=== PATIENT | female | born 1950 | race Caucasian/White ===

== ENCOUNTER 2017-05-11 15:37 | Inpatient (IN) | payer MEDICARE, MEDICAID ==
[~2017-05-11] VITALS: Ht 170.2 cm; Wt 103.5 kg
[~2017-05-11 15:37] MED LIST: ALEN70TA3 PO; BENA20TA2 PO; BRIM5DRO3 EACHEYE; DIAZ5TAB PO; DOCU-131 PO; LATA2.5D3 EACHEYE; METF500T9; MORP15TA3 PO; ONDA4SOL2 PO; OXYC5CAP2 PO; OXYC5TAB2 PO; SERT50TA PO; VARE0.5T PO; methadone
[2017-05-11] MEDS ORDERED: SODIUM CHLORIDE 0.9% 1,000ML IVBOLUS ONE (16:00)
[2017-05-11] MEDS ORDERED: methylPREDNISolone SOD SUCC 125 MG/2 ML IVP ONE (16:00)
[2017-05-11] MEDS ORDERED: ALBUTEROL/IPRATROPIUM 2.5MG/0.5MG, 3 ML NPPB ONE (16:00)
[2017-05-11] MEDS ORDERED: SODIUM CHLORIDE FLUSH 10ML SYR IVF ONE (16:00)
[2017-05-11] MEDS ORDERED: ACETAMINOPHEN 325 MG TABLET PO ONE (16:00)
[2017-05-11 16:36] LABS: EOSINOPHILS % (AUTO) 0 % (1-7); MD NO; MEAN CORPUSCULAR HGB CONC 32.9 g/dL (32.4-35.8); PLATELET COUNT 120 x10^3/uL (130-400); RED CELL DISTRIBUTION WIDTH 18.2 % (9.6-15.2)
[2017-05-11] MEDS ORDERED: ALBUTEROL/IPRATROPIUM 2.5MG/0.5MG, 3 ML ONE (16:40)
[2017-05-11] MEDS ORDERED: FURO20TA3 PO (16:44)
[2017-05-11] MEDS ORDERED: ZOLP10TA PO (16:44)
[2017-05-11] MEDS ORDERED: POTA10CA PO (16:44)
[2017-05-11] MEDS ORDERED: METH-356 PO (16:44)
[2017-05-11 16:48] LABS: ALANINE AMINOTRANSFERASE 31 U/L (12-78); ALBUMIN 3.1 g/dL (3.4-5.0); ANION GAP 9 mmol/L (5-15); CALCIUM 8.6 mg/dL (8.5-10.1); CHLORIDE 97 mmol/L (98-107); CREATININE 0.63 mg/dL (0.55-1.02)
[2017-05-11 16:50] LABS: ALKALINE PHOSPHATASE 125 U/L (45-117); BILIRUBIN,TOTAL 0.5 mg/dL (0.2-1.0); TOTAL PROTEIN 6.7 g/dL (6.4-8.2)
[2017-05-11 16:59] LABS: RAPID INFLUENZA A POSITIVE (Negative); RAPID INFLUENZA B Negative (Negative)
[2017-05-11] MEDS ORDERED: methylPREDNISolone SOD SUCC 125 MG/2 ML ONE (17:07)
[2017-05-11] MEDS ORDERED: ACETAMINOPHEN 325 MG TABLET ONE (17:07)
[2017-05-11 17:12] LABS: BASOPHILS # (AUTO) 0.01 x10^3/uL (0-0.1); BASOPHILS % (AUTO) 0 % (0-1); LYMPHOCYTES # (AUTO) 0.83 x10^3/uL (1-3.4); LYMPHOCYTES % (AUTO) 18 % (22-44); MEAN CORPUSCULAR HEMOGLOBIN 33.5 pg (27.0-34.8); MEAN CORPUSCULAR VOLUME 101.9 fL (80-100); MEAN PLATELET VOLUME 8.9 fL (7.4-10.4); MONOCYTES % (AUTO) 19 % (2-9); NEUTROPHILS # (AUTO) 3.01 x10^3/uL (1.8-6.8); NEUTROPHILS % (AUTO) 63 % (42-75); RED BLOOD COUNT 5.22 x10^6/uL (3.82-5.3)
[2017-05-11 21:40] VITALS: BP 132/80
[2017-05-11] MEDS: ALBUTEROL/IPRATROPIUM 2.5MG/0.5MG, 3 ML NPPB PRN (21:55)
[2017-05-12] MEDS ORDERED: DOCUSATE 100 MG CAPSULE PO PRN
[2017-05-12] MEDS ORDERED: BISACODYL 10 MG SUPP PR PRN
[2017-05-12 00:09] LABS: TROPONIN I 0.047 ng/mL (0.000-0.045)
[2017-05-12 00:18] LABS: HEMOGLOBIN A1C 6.1 % (4.2-6.3)
[2017-05-12] MEDS: HEPARIN 5,000 UNITS/ML, 1ML SQ SCH ×2 (00:29→08:00)
[2017-05-12] MEDS: SODIUM CHLORIDE 0.9% 1,000 ML IV SCH ×3 (00:30→20:00)
[2017-05-12 00:36] LABS: MICROSCOPIC AUTO
[2017-05-12 00:37] LABS: CULTURE INDICATED? YES
[2017-05-12 01:33] VITALS: BP 136/68
[2017-05-12 03:03] VITALS: BP 143/70
[2017-05-12] MEDS ORDERED: Enoxaparin 1 mg/kg protocol SQ SCH (04:00)
[2017-05-12 04:15] LABS: AMPHETAMINE SCREEN, URINE Negative (Negative); BARBITURATE SCREEN, URINE Negative (Negative); BENZODIAZEPINE SCREEN, URINE Negative (Negative); CANNABINOID SCREEN, URINE Negative (Negative); COCAINE SCREEN, URINE Negative (Negative); METHADONE SCREEN, URINE Positive (Negative); OPIATE SCREEN, URINE Negative (Negative)
[2017-05-12] MEDS ORDERED: ENOXAPARIN 100 MG/ML SQ SCH (04:30)
[2017-05-12] MEDS ORDERED: OSELTAMIVIR 75 MG CAPSULE PO SCH ×2 (06:00)
[2017-05-12] MEDS: ASPIRIN 325 MG TABLET EC PO SCH (06:00)
[2017-05-12] MEDS: OSELTAMIVIR 75 MG CAPSULE PO SCH ×2 (06:20→17:32)
[2017-05-12 07:15] VITALS: BP 131/77
[2017-05-12 07:39] LABS: ALANINE AMINOTRANSFERASE 29 U/L (12-78); ALBUMIN 2.8 g/dL (3.4-5.0); ANION GAP 7 mmol/L (5-15); CALCIUM 8.2 mg/dL (8.5-10.1); CHLORIDE 100 mmol/L (98-107); CREATININE 0.59 mg/dL (0.55-1.02); TROPONIN I 0.035 ng/mL (0.000-0.045)
[2017-05-12 07:42] LABS: MD YES; MEAN CORPUSCULAR HEMOGLOBIN 33.2 pg (27.0-34.8); MEAN CORPUSCULAR HGB CONC 32.5 g/dL (32.4-35.8); MEAN CORPUSCULAR VOLUME 102.2 fL (80-100); MEAN PLATELET VOLUME 8.8 fL (7.4-10.4); PLATELET COUNT 114 x10^3/uL (130-400); RED BLOOD COUNT 4.94 x10^6/uL (3.82-5.3)
[2017-05-12 07:47] LABS: BAND#(MANUAL) 0.05 x10^3/uL; BANDS%(MANUAL) 2 % (0-7); LYMPH#(MANUAL) 0.54 x10^3/uL (1-3.4); LYMPHS% (MANUAL) 20 % (22-44); MONOS#(MANUAL) 0.38 x10^3/uL (0.3-2.7); MONOS% (MANUAL) 14 % (2-9); NRBC % (MANUAL) 1 % (0-1); REACTIVE LYMPHS # (MANUAL) 0.03 x10^3/uL (0-0); REACTIVE LYMPHS % (MANUAL) 1 % (0-0); SEGS% (MANUAL) 63 % (42-75)
[2017-05-12 07:48] LABS: ALKALINE PHOSPHATASE 114 U/L (45-117); BILIRUBIN,TOTAL 0.3 mg/dL (0.2-1.0); CHOL/HDL RATIO 1.7; CHOLESTEROL, TOTAL 115 mg/dL (140-239); HDL CHOL % 60 % (28-40); HDL CHOLESTEROL (DIRECT) 69 mg/dL (40-60); LDL CHOLESTEROL,CALCULATED 27 mg/dL (54-169); LDL/HDL RATIO 0.4 (0.5-3.0); THYROID STIMULATING HORMONE 0.845 mIU/L (0.358-3.740); TOTAL PROTEIN 6.5 g/dL (6.4-8.2); TRIGLYCERIDES 95 mg/dL (50-200); VLDL CHOLESTEROL 19 mg/dL (0-25)
[2017-05-12 07:49] LABS: ANISOCYTOSIS 1+
[2017-05-12 07:50] LABS: <PLATELET ESTIMATE> DECREASED; <PLT MORPHOLOGY> NORMAL PLT MORPH; POLYCHROMASIA 1+
[2017-05-12 12:15] VITALS: BP 136/81
[2017-05-12] MEDS: ALBUTEROL/IPRATROPIUM 2.5MG/0.5MG, 3 ML NPPB PRN (16:09)
[2017-05-12] MEDS: GUAIFENESIN/COD200MG-20MG/10ML LIQUID PO PRN (17:32)
[2017-05-12 18:49] VITALS: BP 125/73
[2017-05-12] MEDS ORDERED: ENOXAPARIN 40 MG/0.4 ML ONE (19:56)
[2017-05-12] MEDS: ENOXAPARIN 40 MG/0.4 ML SQ SCH (20:01)
[2017-05-12] MEDS: LORazepam 0.5MG TABLET PO PRN (20:19)
[2017-05-13 01:40] VITALS: BP 148/78
[2017-05-13] MEDS: SODIUM CHLORIDE 0.9% 1,000 ML IV SCH ×2 (04:01→16:26)
[2017-05-13] MEDS: OSELTAMIVIR 75 MG CAPSULE PO SCH ×2 (06:10→16:26)
[2017-05-13] MEDS: ASPIRIN 325 MG TABLET EC PO SCH (06:10)
[2017-05-13 08:46] VITALS: BP 154/85
[2017-05-13 13:51] VITALS: BP 151/74
[2017-05-13 19:00] VITALS: BP 153/79
[2017-05-13] MEDS: ENOXAPARIN 40 MG/0.4 ML SQ SCH (20:00)
[2017-05-14] MEDS: SODIUM CHLORIDE 0.9% 1,000 ML IV SCH ×3 (00:14→17:43)
[2017-05-14] MEDS: GUAIFENESIN/COD200MG-20MG/10ML LIQUID PO PRN (00:19)
[2017-05-14 02:00] VITALS: BP 169/93
[2017-05-14 02:20] VITALS: BP 183/106
[2017-05-14] MEDS ORDERED: METOPROLOL TARTRATE 25 MG TABLET ONE (02:23)
[2017-05-14] MEDS ORDERED: AMLODIPINE 5 MG TABLET ONE (02:23)
[2017-05-14] MEDS: METOPROLOL TARTRATE 25 MG TABLET PO SCH ×2 (02:29→16:26)
[2017-05-14] MEDS ORDERED: AMLODIPINE 5 MG TABLET PO ONE (02:30)
[2017-05-14] MEDS: ACETAMINOPHEN 325 MG TABLET PO PRN (03:55)
[2017-05-14] MEDS: ASPIRIN 325 MG TABLET EC PO SCH (06:00)
[2017-05-14] MEDS: OSELTAMIVIR 75 MG CAPSULE PO SCH ×2 (06:05→16:26)
[2017-05-14 06:52] VITALS: BP 132/84
[2017-05-14] MEDS ORDERED: REGADENOSON 0.4 MG/5 ML SYRINGE ONE (08:14)
[2017-05-14] MEDS: LORazepam 0.5MG TABLET PO PRN ×2 (09:03→16:25)
[2017-05-14 13:02] VITALS: BP 168/88
[2017-05-14] MEDS: PROMETHAZINE/COD. 10MG/6.25MG/5 ML ORAL SOL PO PRN (16:25)
[2017-05-14] MEDS: ALBUTEROL/IPRATROPIUM 2.5MG/0.5MG, 3 ML NPPB PRN (16:42)
[2017-05-14 19:52] VITALS: BP 164/86
[2017-05-14] MEDS: ENOXAPARIN 40 MG/0.4 ML SQ SCH (20:52)
[2017-05-15 01:48] VITALS: BP_SYST 175; BP_SYST 181; BP_DIAS 105; BP_DIAS 90
[2017-05-15] MEDS: SODIUM CHLORIDE 0.9% 1,000 ML IV SCH ×3 (02:00→16:30)
[2017-05-15 02:27] VITALS: BP 164/92
[2017-05-15] MEDS: LORazepam 0.5MG TABLET PO PRN ×2 (04:10→17:38)
[2017-05-15] MEDS: OSELTAMIVIR 75 MG CAPSULE PO SCH ×2 (05:38→17:38)
[2017-05-15] MEDS: ASPIRIN 325 MG TABLET EC PO SCH (05:39)
[2017-05-15] MEDS: METOPROLOL TARTRATE 25 MG TABLET PO SCH ×2 (05:39→17:39)
[2017-05-15] MEDS: ALBUTEROL/IPRATROPIUM 2.5MG/0.5MG, 3 ML NPPB PRN (06:51)
[2017-05-15 06:53] VITALS: BP 160/89
[2017-05-15 12:51] VITALS: BP 159/89
[2017-05-15] MEDS ORDERED: REGADENOSON 0.4 MG/5 ML SYRINGE ONE (14:22)
[2017-05-15] MEDS ORDERED: MAGNESIUM HYDROXIDE 8%, 30ML UDC PO PRN (15:30)
[2017-05-15] MEDS: PROMETHAZINE/COD. 10MG/6.25MG/5 ML ORAL SOL PO PRN (17:39)
[2017-05-15 19:37] VITALS: BP 171/81
[2017-05-15] MEDS: ENOXAPARIN 40 MG/0.4 ML SQ SCH (20:26)
[2017-05-15 20:27] VITALS: BP 162/83
[2017-05-16] MEDS: SODIUM CHLORIDE 0.9% 1,000 ML IV SCH ×2 (00:31→10:01)
[2017-05-16 01:28] VITALS: BP 167/88
[2017-05-16] MEDS: ASPIRIN 325 MG TABLET EC PO SCH (06:36)
[2017-05-16] MEDS: OSELTAMIVIR 75 MG CAPSULE PO SCH (06:36)
[2017-05-16] MEDS: METOPROLOL TARTRATE 25 MG TABLET PO SCH ×2 (06:36→16:07)
[2017-05-16] MEDS: ACETAMINOPHEN 325 MG TABLET PO PRN (06:38)
[2017-05-16 07:32] VITALS: BP 184/98
[2017-05-16] MEDS ORDERED: ASPI-515 PO (09:02)
[2017-05-16] MEDS ORDERED: FLUT1AER INH (09:02)
[2017-05-16] MEDS ORDERED: CEFD300C37 PO (09:02)
[2017-05-16] MEDS ORDERED: IPRA3AMP NPPB (09:02)
[2017-05-16] MEDS ORDERED: PRED5TAB PO (09:02)
[2017-05-16 13:53] VITALS: BP 197/96
[2017-05-16] MEDS ORDERED: HYDR-3341 PO (14:00)
[2017-05-16 15:51] VITALS: BP 191/98
[2017-05-16 17:31] VITALS: BP 171/93
[2017-05-16] MEDS ORDERED: CEFDINIR 300 MG CAPSULE PO SCH (21:00)
== END 2017-05-16 21:26 | disposition home or self-care (01) | DRG 871 ==
LOC: ED 16:59 → EDIP 19:16 → 3NE 20:22 → 5SO 05-12 02:36
PROVIDERS: ADMIT Surgery; ATTEND Family Medicine
DX: A41.89 Other specified sepsis (principal); J11.00 Influenza due to unidentified influenza virus with unspecified type of pneumonia; J96.21 Acute and chronic respiratory failure with hypoxia; I24.8 Other forms of acute ischemic heart disease; J44.0 Chronic obstructive pulmonary disease with (acute) lower respiratory infection; J44.1 Chronic obstructive pulmonary disease with (acute) exacerbation; F10.20 Alcohol dependence, uncomplicated; F17.200 Nicotine dependence, unspecified, uncomplicated; F32.9 Major depressive disorder, single episode, unspecified; G89.29 Other chronic pain; I10 Essential (primary) hypertension; I45.10 Unspecified right bundle-branch block; E66.9 Obesity, unspecified; Z68.35 Body mass index [BMI] 35.0-35.9, adult
CPT/HCPCS: 36415; 36600; 78452; 80053; 80061; 80307; 81001; 82803; 82962; 83036; 83605; 83735; 84100; 84145; 84443; 84484; 85025; 87040; 87086; 87400; 93005; 93017; 94640; 96361; 96374; J1644; J1650; J2785; J7620; A9502; C9898; G0479; J2930; J7030

== ENCOUNTER 2017-06-29 00:24 | Inpatient (IN) | payer MEDICARE, MEDICAID ==
[~2017-06-29] VITALS: Ht 170.2 cm; Wt 98.3 kg
[~2017-06-29 00:24] MED LIST changes: +ASPI-515 PO; +CEFD300C37 PO; +FLUT1AER INH; +FURO20TA3 PO; +HYDR-3341 PO; +IPRA3AMP NPPB; +METH-356 PO; +POTA10CA PO; +PRED5TAB PO; +ZOLP10TA PO
[2017-06-29] MEDS ORDERED: LORazepam 2 MG/ML, 1ML ONE ×2 (00:52→01:43)
[2017-06-29] MEDS ORDERED: SODIUM CHLORIDE 0.9% 1,000ML IVBOLUS ONE (01:00)
[2017-06-29] MEDS ORDERED: LORazepam 2 MG/ML, 1ML IVPush ONE ×2 (01:00→02:30)
[2017-06-29 01:07] LABS: BASOPHILS # (AUTO) 0.04 x10^3/uL (0-0.1); BASOPHILS % (AUTO) 1 % (0-1); EOSINOPHILS # (AUTO) 0.03 x10^3/uL (0-0.4); EOSINOPHILS % (AUTO) 1 % (1-7); LYMPHOCYTES # (AUTO) 1.96 x10^3/uL (1-3.4); LYMPHOCYTES % (AUTO) 36 % (22-44); MD NO; MEAN CORPUSCULAR HEMOGLOBIN 33.3 pg (27.0-34.8); MEAN CORPUSCULAR VOLUME 100.9 fL (80-100); MEAN PLATELET VOLUME 8.5 fL (7.4-10.4); MONOCYTES % (AUTO) 11 % (2-9); NEUTROPHILS # (AUTO) 2.79 x10^3/uL (1.8-6.8); NEUTROPHILS % (AUTO) 51 % (42-75); PLATELET COUNT 178 x10^3/uL (130-400); RED BLOOD COUNT 4.89 x10^6/uL (3.82-5.3); RED CELL DISTRIBUTION WIDTH 18.6 % (9.6-15.2)
[2017-06-29 02:05] LABS: MICROSCOPIC NOT IND
[2017-06-29 02:09] LABS: CULTURE INDICATED? NO
[2017-06-29 02:16] LABS: ALANINE AMINOTRANSFERASE 44 U/L (12-78); ALBUMIN 3.6 g/dL (3.4-5.0); CALCIUM 8.5 mg/dL (8.5-10.1); CREATININE 0.51 mg/dL (0.55-1.02); SALICYLATE LEVEL 1.8 mg/dL (2.8-20.0)
[2017-06-29 02:19] LABS: AMPHETAMINE SCREEN, URINE Negative (Negative); BARBITURATE SCREEN, URINE Negative (Negative); BENZODIAZEPINE SCREEN, URINE Negative (Negative); CANNABINOID SCREEN, URINE Negative (Negative); COCAINE SCREEN, URINE Negative (Negative); METHADONE SCREEN, URINE Positive (Negative); OPIATE SCREEN, URINE Negative (Negative)
[2017-06-29 02:20] LABS: ALKALINE PHOSPHATASE 126 U/L (45-117); TOTAL PROTEIN 7.1 g/dL (6.4-8.2); TROPONIN I 0.023 ng/mL (0.000-0.045)
[2017-06-29 02:22] LABS: ACETAMINOPHEN < 2 mcg/mL (10-30); ANION GAP 13 mmol/L (5-15); CHLORIDE 99 mmol/L (98-107)
[2017-06-29] MEDS ORDERED: ZIPRASIDONE 20 MG INJ IM ONE ×2 (02:50→03:00)
[2017-06-29] MEDS ORDERED: SODIUM CHLORIDE 0.9% 1,000 ML IV ONE (03:29)
[2017-06-29] MEDS ORDERED: ONDANSETRON 2MG/ML, 2ML IVPush PRN ×2 (03:30→04:30)
[2017-06-29] MEDS ORDERED: DOCUSATE 100 MG CAPSULE PO PRN (04:30)
[2017-06-29] MEDS ORDERED: LORazepam 0.5MG TABLET PO PRN (04:30)
[2017-06-29] MEDS ORDERED: hydrALAzine 20 MG/ML, 1ML IVPush PRN (04:30)
[2017-06-29] MEDS ORDERED: NITROGLYCERIN 0.4 MG BOTTLE (25 TABS) SL PRN (04:30)
[2017-06-29] MEDS ORDERED: ZOLPIDEM 10MG TABLET PO PRN (04:30)
[2017-06-29] MEDS ORDERED: LORazepam 2 MG/ML, 1ML IV PRN ×2 (04:30)
[2017-06-29] MEDS ORDERED: THIAMINE 200 MG in DEXTROSE 5% 50 ML IVPB ONE (04:30)
[2017-06-29] MEDS ORDERED: ACETAMINOPHEN 325 MG TABLET PO PRN (04:30)
[2017-06-29] MEDS ORDERED: ALBUTEROL/IPRATROPIUM 2.5MG/0.5MG, 3 ML NPPB PRN ×2 (04:30→05:30)
[2017-06-29] MEDS ORDERED: LORazepam 1MG TABLET PO PRN ×2 (04:30)
[2017-06-29 04:59] VITALS: BP 193/91
[2017-06-29] MEDS: ENOXAPARIN 40 MG/0.4 ML SQ SCH (06:29)
[2017-06-29] MEDS: POTASSIUM CHLORIDE 10 MEQ, MVI ADULT 10 ML, FOLIC ACID 1 MG, MAGNESIUM SULFATE 1 GM in ... IV SCH ×2 (07:12→22:46)
[2017-06-29 07:38] VITALS: BP 155/76
[2017-06-29 07:39] VITALS: BP 155/76
[2017-06-29] MEDS ORDERED: SERTRALINE 100MG TABLET ONE (07:49)
[2017-06-29] MEDS ORDERED: BENAZEPRIL 10 MG TABLET ONE (07:50)
[2017-06-29] MEDS: SERTRALINE 50MG TABLET PO SCH (07:53)
[2017-06-29] MEDS: BENAZEPRIL 20 MG TABLET PO SCH (07:54)
[2017-06-29] MEDS ORDERED: ASPIRIN 81 MG TABLET CHEW ONE (07:56)
[2017-06-29] MEDS: ASPIRIN 81 MG TABLET EC PO SCH (07:56)
[2017-06-29] MEDS: BRIMONIDINE TARTRATE OPHTH 0.15%, 5ML EACHEYE SCH ×3 (10:30→20:34)
[2017-06-29] MEDS: FLUTICASONE/VILANTEROL 100-25MCG/INH INH SCH (10:30)
[2017-06-29 13:09] VITALS: BP 163/95
[2017-06-29 20:00] VITALS: BP 166/59
[2017-06-29] MEDS ORDERED: LATANOPROST OPHTH 0.005%, 2.5ML EACHEYE SCH (21:00)
[2017-06-30 02:26] VITALS: BP 172/80
[2017-06-30] MEDS: ENOXAPARIN 40 MG/0.4 ML SQ SCH (03:30)
[2017-06-30 03:32] VITALS: BP 180/91
[2017-06-30 05:32] LABS: BASOPHILS # (AUTO) 0.03 x10^3/uL (0-0.1); BASOPHILS % (AUTO) 1 % (0-1); EOSINOPHILS # (AUTO) 0.08 x10^3/uL (0-0.4); EOSINOPHILS % (AUTO) 2 % (1-7); LYMPHOCYTES # (AUTO) 1.05 x10^3/uL (1-3.4); LYMPHOCYTES % (AUTO) 23 % (22-44); MD NO; MEAN CORPUSCULAR HGB CONC 33.5 g/dL (32.4-35.8); MEAN CORPUSCULAR VOLUME 101.4 fL (80-100); MEAN PLATELET VOLUME 9.1 fL (7.4-10.4); MONOCYTES # (AUTO) 0.55 x10^3/uL (0.2-0.8); MONOCYTES % (AUTO) 12 % (2-9); NEUTROPHILS # (AUTO) 2.83 x10^3/uL (1.8-6.8); NEUTROPHILS % (AUTO) 62 % (42-75); PLATELET COUNT 145 x10^3/uL (130-400); RED BLOOD COUNT 4.35 x10^6/uL (3.82-5.3); RED CELL DISTRIBUTION WIDTH 18.2 % (9.6-15.2)
[2017-06-30 05:47] LABS: CHLORIDE 109 mmol/L (98-107)
[2017-06-30 05:56] LABS: ANION GAP 9 mmol/L (5-15); CALCIUM 7.7 mg/dL (8.5-10.1); CREATININE 0.48 mg/dL (0.55-1.02)
[2017-06-30 07:33] VITALS: BP 168/90
[2017-06-30] MEDS: BRIMONIDINE TARTRATE OPHTH 0.15%, 5ML EACHEYE SCH (09:00)
[2017-06-30] MEDS ORDERED: NEUTRA PHOS K 250 MG TABLET PO SCH (09:00)
[2017-06-30] MEDS ORDERED: POTASSIUM CHLORIDE 20 MEQ TAB.ER.PRT PO ONE (09:00)
[2017-06-30 09:34] LABS: CLOSTRIDIUM DIFFICILE ANTIGEN NEGATIVE; CLOSTRIDIUM DIFFICILE TOXIN NEGATIVE (Negative)
[2017-06-30] MEDS: BENAZEPRIL 20 MG TABLET PO SCH (09:59)
[2017-06-30] MEDS: FLUTICASONE/VILANTEROL 100-25MCG/INH INH SCH (09:59)
[2017-06-30] MEDS: ASPIRIN 81 MG TABLET EC PO SCH (10:00)
[2017-06-30] MEDS: SERTRALINE 50MG TABLET PO SCH (10:00)
[2017-06-30] MEDS: POTASSIUM CHLORIDE 10 MEQ, MVI ADULT 10 ML, FOLIC ACID 1 MG, MAGNESIUM SULFATE 1 GM in ... IV SCH (10:01)
[2017-06-30] MEDS ORDERED: PHOS250T3 PO (11:04)
[2017-06-30] MEDS ORDERED: HYDR-3341 PO (11:07)
[2017-06-30] MEDS ORDERED: FLU VACC QS2017-18 (36MOS+) UP/PF 0.5 ML IM-VACC ONE (11:30)
[2017-06-30 11:41] VITALS: BP 154/81
== END 2017-06-30 13:50 | disposition home or self-care (01) | DRG 917 ==
LOC: ED 00:45 → EDIP 03:29 → 5SO 04:52
PROVIDERS: ADMIT Internal Medicine; ATTEND Internal Medicine
DX: T40.3X1A Poisoning by methadone, accidental (unintentional), initial encounter (principal); G93.40 Encephalopathy, unspecified; E87.1 Hypo-osmolality and hyponatremia; E83.39 Other disorders of phosphorus metabolism; F10.220 Alcohol dependence with intoxication, uncomplicated; E87.6 Hypokalemia; E86.0 Dehydration; I10 Essential (primary) hypertension; F32.9 Major depressive disorder, single episode, unspecified; J45.909 Unspecified asthma, uncomplicated; M81.0 Age-related osteoporosis without current pathological fracture; Y92.098 Other place in other non-institutional residence as the place of occurrence of the external cause; Z91.81 History of falling; Z23 Encounter for immunization
CPT/HCPCS: 36415; 70450; 71045; 80048; 80053; 80307; 80329; 81003; 82140; 83735; 84100; 84484; 85025; 87324; 90686; 93005; 96361; 96372; 96374; 96376; J1650; J3411; J3475; J3480; J3486; J7042; G0480; J0360; J2060; J7030